=== PATIENT | male | born 1955 | race Caucasian/White ===

== ENCOUNTER 2017-12-03 18:19 | Observation (INO) | payer OTHER ==
[~2017-12-03] VITALS: Ht 182.9 cm; Wt 84.0 kg
[2017-12-03 18:27] VITALS: BP 118/81; PULSE 117; RESP 18; TEMP 97.9; O2SAT 93
[2017-12-03 18:38] VITALS: BP 118/81; PULSE 111; RESP 18; TEMP 97.9; O2SAT 94
[2017-12-03 18:41] VITALS: BP 118/81; PULSE 111; RESP 18; TEMP 97.9; O2SAT 94
[2017-12-03] MEDS ORDERED: THIAMINE INJ 100 MG in SODIUM CHLORIDE 0.9% INJ 100 ML IV ONE (18:45)
[2017-12-03] MEDS ORDERED: SODIUM CHLOR 0.9% 1000 ML INJ 1,000 ML IV ONE ×2 (18:45→19:15)
[2017-12-03 18:47] VITALS: BP_SYST 103; BP_SYST 118; BP_SYST 133; BP_DIAS 73; BP_DIAS 80; BP_DIAS 88; RESP 21; RESP 24
[2017-12-03 18:53] LABS: AUTOMATED NEUTROPHIL # 6.5 TH/MM3 (1.8-7.7); BASOPHIL # 0.1 TH/MM3 (0-0.2); BASOPHIL % 0.6 % (0.0-2.0); EOSINOPHIL % 0.2 % (0.0-4.0); HEMATOCRIT 45.4 % (39.0-51.0); HEMOGLOBIN 15.8 GM/DL (13.0-17.0); LYMPH % 21.1 % (9.0-44.0); LYMPHOCYTE # 1.9 TH/MM3 (1.0-4.8); MEAN CELL VOLUME 100.7 FL (80.0-100.0); MEAN CORPUSCULAR HEMOGLOBIN 35.1 PG (27.0-34.0); MEAN CORPUSCULAR HGB CONC 34.8 % (32.0-36.0); MONO % 5.4 % (0.0-8.0); MONOCYTE # 0.5 TH/MM3 (0-0.9); NEUT % 72.7 % (16.0-70.0); PLATELET COUNT 174 TH/MM3 (150-450); RED BLOOD COUNT 4.51 MIL/MM3 (4.50-5.90); RED CELL DISTRIBUTION WIDTH 14.8 % (11.6-17.2)
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
[2017-12-03 19:06] LABS: PROTHROMBIN TIME - PATIENT 9.7 SEC (9.8-11.6)
[2017-12-03 19:15] LABS: ALBUMIN 3.6 GM/DL (3.4-5.0); AST (GOT) 36 U/L (15-37); BICARBONATE 20.7 MEQ/L (21.0-32.0); BLOOD UREA NITROGEN 10 MG/DL (7-18); CALCIUM 8.4 MG/DL (8.5-10.1); CHLORIDE 102 MEQ/L (98-107); CREATININE 0.77 MG/DL (0.60-1.30); GLOMERULAR FILTRATION RATE 103 ML/MIN (>89); GLUCOSE,RANDOM 73 MG/DL (74-106); MAGNESIUM 1.9 MG/DL (1.5-2.5); SODIUM (NA) 144 MEQ/L (136-145)
--- NOTE | 2017-12-03 19:20 | RADRPT ---
EXAM DATE: 12/03/2017 7:13 PM EDT AGE/SEX: 62 years / Male INDICATIONS: Bruising of the left humerus of indeterminate age, patient displays full range of motio n. CLINICAL DATA: This is the patient's initial encounter. Patient reports that signs and symptoms have been present for 1 day and indicates a pain score of 1/10. MEDICAL/SURGICAL HISTORY: Non-responsive. Non-responsive. COMPARISON: No prior exams available for comparison. FINDINGS: No acute fracture or dislocation. No bony destructive changes. CONCLUSION: No acute findings Electronically signed by: Hung Fonseca MD 12/03/2017 7:19 PM EDT
--- NOTE | 2017-12-03 19:24 | RADRPT ---
EXAM DATE: 12/03/2017 7:12 PM EDT AGE/SEX: 62 years / Male INDICATIONS: Trauma, fall yesterday. CLINICAL DATA: This is the patient's initial encounter. Patient reports that signs and symptoms have been present for 1 day and indicates a pain score of 3/10. MEDICAL/SURGICAL HISTORY: None. None. RADIATION DOSE: 20.53 CTDI (mGy) COMPARISON: No prior exams available for comparison. TECHNIQUE: Contiguous axial images were obtained using helical multirow detector technique. The vol umetric data was post-processed with multiplanar reconstruction in oblique axial, sagittal, and coron al planes. Using automated exposure control and adjustment of the mA and/or kV according to patient s ize, radiation dose was kept as low as reasonably achievable to obtain optimal diagnostic quality darrian ges. FINDINGS: There is no acute fracture or spondylolisthesis. No prevertebral soft tissue swelling. Moderate degen erative disc disease is present. No significant AP canal stenosis. Bilateral foraminal stenosis at C5 -6. Moderate to advanced facet arthropathy. CONCLUSION: 1. No acute fracture. Moderate degenerative change. Electronically signed by: Hung Fonseca MD 12/03/2017 7:22 PM EDT
--- NOTE | 2017-12-03 19:25 | RADRPT ---
EXAM DATE: 12/03/2017 7:10 PM EDT AGE/SEX: 62 years / Male INDICATIONS: Trauma, fall yesterday. CLINICAL DATA: This is the patient's initial encounter. Patient reports that signs and symptoms have been present for 1 day and indicates a pain score of 3/10. MEDICAL/SURGICAL HISTORY: None. None. RADIATION DOSE: 66.34 CTDI (mGy) COMPARISON: No prior exams available for comparison. TECHNIQUE: CT of the head without contrast. Using automated exposure control and adjustment of the mA and/or kV according to patient size, radiation dose was kept as low as reasonably achievable to ob tain optimal diagnostic quality images. FINDINGS: Cerebrum: The ventricles are normal for age. No evidence of midline shift, mass lesion, hemorrhage or acute infarction. No extraaxial fluid collections are seen. Posterior Fossa: The cerebellum and brainstem are intact. The 4th ventricle is midline. The cerebe llopontine angle is unremarkable. Extracranial: The visualized portion of the orbits is intact. Skull: The calvaria is intact. No evidence of skull fracture. CONCLUSION: 1. No acute intracranial abnormalities. Electronically signed by: Hung Fonseca MD 12/03/2017 7:23 PM EDT
[2017-12-03 19:26] LABS: ALKALINE PHOSPHATASE 69 U/L (45-117); ALT (GPT) 45 U/L (12-78); TOTAL BILIRUBIN ADULT 0.8 MG/DL (0.2-1.0); TOTAL PROTEIN 7.5 GM/DL (6.4-8.2); TROPONIN I LESS THAN 0.02 NG/ML (0.02-0.05)
--- NOTE | 2017-12-03 19:26 | RADRPT ---
EXAM DATE: 12/03/2017 7:09 PM EDT AGE/SEX: 62 years / Male INDICATIONS: Syncopal episode. CLINICAL DATA: This is the patient's initial encounter. Patient reports that signs and symptoms have been present for 1 day and indicates a pain score of 0/10. MEDICAL/SURGICAL HISTORY: None. None. COMPARISON: No prior exams available for comparison. FINDINGS: A single AP view of the chest demonstrates the lungs to be symmetrically aerated without evidence of mass, infiltrate or effusion. The cardiomediastinal contours are unremarkable. Osseous structures a re intact. CONCLUSION: No acute findings. Incidental azygos fissure. Electronically signed by: Hung Fonseca MD 12/03/2017 7:25 PM EDT
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
[2017-12-03] MEDS ORDERED: SODIUM CHLORIDE 0.9% FLUSH 10 ML FLUSH IV FLUSH PRN (20:30)
[2017-12-03] MEDS ORDERED: FLUMAZENIL 0.5 MG/5 ML VIAL IV PUSH PRN (20:30)
[2017-12-03] MEDS ORDERED: LORazepam 1 MG TAB PO PRN (20:30)
[2017-12-03] MEDS ORDERED: LORazepam 2 MG TAB PO PRN (20:30)
[2017-12-03] MEDS ORDERED: LORazepam 2 MG/ML VIAL IV PUSH PRN ×4 (20:30)
[2017-12-03] MEDS ORDERED: ENOXAPARIN SODIUM 40 MG/0.4 ML SYRINGE SQ SCH (21:00)
[2017-12-03] MEDS: SODIUM CHLORIDE 0.9% FLUSH 10 ML FLUSH IV FLUSH SCH (21:10)
[2017-12-03] MEDS: CEPHALEXIN MONOHYDRATE 500 MG CAP PO SCH (21:10)
[2017-12-03 21:32] VITALS: BP 136/71; PULSE 99; RESP 17; TEMP 98.1; O2SAT 94
[2017-12-03] MEDS ORDERED: THIAMINE INJ 100 MG in SODIUM CHLORIDE 0.9% INJ 100 ML IV SCH (22:00)
[2017-12-03] MEDS ORDERED: MULTIVITAMIN INJ 10 ML, FOLIC ACID INJ 1 MG in SODIUM CHLORID 0.9% 500 ML INJ 500 ML IV SCH (22:00)
[2017-12-03 23:25] VITALS: BP 132/73; PULSE 113; RESP 17; TEMP 98.3; O2SAT 96
[2017-12-04 03:52] VITALS: BP 115/67; PULSE 86; RESP 17; TEMP 98.5; O2SAT 95
[2017-12-04] MEDS: CEPHALEXIN MONOHYDRATE 500 MG CAP PO SCH (06:40)
[2017-12-04] MEDS ORDERED: SODIUM CHLOR 0.9% 1000 ML INJ 1,000 ML IV SCH (07:15)
[2017-12-04 07:35] LABS: HEMATOCRIT 39.2 % (39.0-51.0); HEMOGLOBIN 13.5 GM/DL (13.0-17.0); MEAN CELL VOLUME 99.8 FL (80.0-100.0); MEAN CORPUSCULAR HEMOGLOBIN 34.4 PG (27.0-34.0); MEAN CORPUSCULAR HGB CONC 34.5 % (32.0-36.0); MEAN PLATELET VOLUME 7.6 FL (7.0-11.0); PLATELET COUNT 153 TH/MM3 (150-450); RED BLOOD COUNT 3.93 MIL/MM3 (4.50-5.90); RED CELL DISTRIBUTION WIDTH 14.3 % (11.6-17.2); WHITE BLOOD COUNT 6.2 TH/MM3 (4.0-11.0)
[2017-12-04] MEDS: SODIUM CHLORIDE 0.9% FLUSH 10 ML FLUSH IV FLUSH SCH (07:40)
[2017-12-04 07:41] LABS: PROTHROMBIN TIME - PATIENT 10.6 SEC (9.8-11.6)
[2017-12-04 08:14] LABS: ALBUMIN 2.9 GM/DL (3.4-5.0); ALKALINE PHOSPHATASE 54 U/L (45-117); ALT (GPT) 33 U/L (12-78); AST (GOT) 26 U/L (15-37); BICARBONATE 29.2 MEQ/L (21.0-32.0); BLOOD UREA NITROGEN 10 MG/DL (7-18); CALCIUM 8.4 MG/DL (8.5-10.1); CHLORIDE 103 MEQ/L (98-107); CREATININE 0.74 MG/DL (0.60-1.30); GLOMERULAR FILTRATION RATE 108 ML/MIN (>89); GLUCOSE,RANDOM 83 MG/DL (74-106); SODIUM (NA) 141 MEQ/L (136-145); TOTAL BILIRUBIN ADULT 1.1 MG/DL (0.2-1.0); TOTAL PROTEIN 6.2 GM/DL (6.4-8.2)
[2017-12-04 08:20] VITALS: BP_SYST 115; BP_SYST 120; BP_SYST 130; BP_DIAS 69; BP_DIAS 70; BP_DIAS 72; PULSE 79; RESP 18; TEMP 97.7; O2SAT 91
[2017-12-04] MEDS ORDERED: FOLIC ACID 1 MG TAB PO SCH (09:00)
[2017-12-04] MEDS ORDERED: CEPH500C PO (10:06)
[2017-12-04] MEDS ORDERED: MULT-65 PO (10:06)
--- NOTE | 2017-12-04 10:07 | HHI.DCPOC ---
Discharge Care Plan Diagnosis: (1) Toxic metabolic encephalopathy (2) Alcoholism (3) Cellulitis (4) High anion gap metabolic acidosis (5) Fall Goals to Promote Your Health * To prevent worsening of your condition and complications * To maintain your health at the optimal level Directions to Meet Your Goals Take your medications as prescribed Follow your dietary instruction Follow activity as directed Keep your appointments as scheduled Take your immunizations and boosters as scheduled If your symptoms worsen call your PCP, if no PCP go to Urgent Care Center or Emergency Room Smoking is Dangerous to Your Health. Avoid second hand smoke Call the 24-hour hour crisis hotline for domestic abuse at aDkota Herrera MD R2 Dec 04, 2017 10:07
[2017-12-04 11:27] VITALS: BP 129/71; PULSE 92; RESP 18; TEMP 98; O2SAT 92
--- NOTE | 2017-12-04 11:36 | HHI.FPPN ---
Subjective Remarks Pt. seen, examined and discussed with Dr. Dobson and Javier. This is a 62 yo male who is a heavy alcohol user and who had had frequent falls on the days leading up to admission. On the day of admission a friend found him awke but altered, with agitation, confusion, slurring of speech and poor balance. Has been treated at [facility] in the past. His etoh level was 400 and he ad metabolic acidosis. was started on a rally pack and was given a fluid bolus in ED. No focal neurologic deficits were noted when initially seen by Dr. Herrera. This a.m. he reports feeling better but still being a bit unsteady. Appetite is good. Objective Vitals Vital Signs Date Time Temp Pulse Resp B/P (MAP) Pulse Ox O2 Delivery O2 Flow Rate FiO2 12/04/17 08:20 97.7 79 18 115/72 (86) 91 120/69 (86) 130/70 (90) 12/04/17 03:52 98.5 86 17 115/67 (83) 95 12/03/17 23:25 98.3 113 17 132/73 (92) 96 12/03/17 21:32 98.1 99 17 136/71 (92) 94 12/03/17 21:31 12/03/17 18:47 115 21 133/88 (103) 122 24 118/80 (93) 127 24 103/73 (83) 12/03/17 18:41 97.9 111 18 118/81 (93) 94 Nasal Cannula 2.00 12/03/17 18:38 97.9 111 18 118/81 (93) 94 Nasal Cannula 2.00 12/03/17 18:32 112 18 94 Nasal Cannula 2.00 12/03/17 18:27 97.9 117 18 118/81 (93) 93 I/O 12/03/17 12/03/17 12/03/17 12/04/17 12/04/17 12/04/17 06:59 14:59 22:59 06:59 14:59 22:59 Intake Total 2101 ml 1000 ml 500 ml Output Total 550 ml Balance 2101 ml 1000 ml -50 ml Intake Oral 1000 ml 500 ml IV Total 2101 ml Output Urine Total 550 ml # Voids 2 Result Diagram: 12/04/17 0537 12/04/1737 Objective Remarks O. CONSTITUTIONAL/GEN: normally nourished, in NAD. HEAD: Black eschar on upper forehead and scalp which appears to be old, dried blood. EYES: conjunctiva normal, PERRLA, EOMI. NECK: supple LUNGS: clear A-P, respiratory effort is normal. CARDIOVASCULAR: RR without murmur or gallop. No significant edema. GI/ABD: soft without masses, without organomegaly. NEURO: No focal deficits. Gait is mildly ataxic. SKIN: Poor hygiene, erythematous rash on anterior thoras and left upper thigh, non-pruritic. HEME/LYMPH: no bruising, petechia or significant adenopathy MUSC: back is normal in appearance. Extremities are normal in appearance with the exception of the rash as noted above. PSYCH/MENTAL STATUS: Alert and oriented x 3. A/P Assessment and Plan 62-year-old with alcohol abuse and no other major past medical history presenting with: Discharge Planning Home today, follow-up with his primary care doctor re his rash. Advised to discontinue alcohol. Attending Attestation Patient seen and examined. Case reviewed and discussed with the resident team. Agree with plan of care as discussed with me. Problem List: (1) Toxic metabolic encephalopathy ICD Codes: G92 - Toxic encephalopathy Status: Resolved Plan: Episode of altered mental status and ataxia almost certainly secondary to alcohol intoxication Neurologic exam within normal limits EtOH level elevated Metabolic acidosis due to alcohol Reported chest pain unlikely to be cardiac; initial troponin negative, CP not preceding admission - IV fluids - Thiamine, folate, multivitamin - Prevent withdrawal as below - Neuro checks (2) Fall ICD Codes: W19.XXXA - Unspecified fall, initial encounter Status: Resolved Plan: Mechanical fall likely due to alcohol intoxication CT head negative for acute pathology - Monitor clinically (3) Cellulitis ICD Codes: L03.90 - Cellulitis, unspecified Status: Acute Plan: Cellulitic changes of chest and L upper thigh on exam No fever or leukocytosis - Cephalexin 500 mg PO TID x7 days (4) Orthostatic hypotension ICD Codes: I95.1 - Orthostatic hypotension Status: Resolved Plan: Likely secondary to malnutrition from alcohol abuse - Regular diet if passes swallow eval - IV fluids (5) High anion gap metabolic acidosis ICD Codes: E87.2 - Acidosis Status: Acute Plan: Secondary to alcohol use - See plan above (6) Alcoholism ICD Codes: F10.20 - Alcohol dependence, uncomplicated Status: Chronic Plan: Chronic, intermittently acknowledging (in denial phase) - Rally pack as above - CIWA protocol to prevent withdrawal - CM to assess social situation, provide resources locally (patient had been to [facility] for detox previously) (7) FEN/PPX Status: Resolved Plan: Fluids: NS Elecs: Monitor, replete PRN Nutrition: Diet regular basic (if passes bedside swallow eval) DVT: Lovenox Code status: DNR Dispo: Place in observation; likely can be discharged tomorrow once intoxication wears off Problem Qualifiers (1) Fall: Qualified Codes: W19.XXXA - Unspecified fall, initial encounter (2) Cellulitis: Qualified Codes: L03.90 - Cellulitis, unspecified Laura Salas MD Dec 04, 2017 11:36
--- NOTE | 2017-12-04 14:34 | EKG ---
Date Performed: 12/03/2017 Time Performed: 18:35:19 PTAGE: 62 years EKG: SINUS TACHYCARDIA ABNORMAL RHYTHM ECG NO PREVIOUS TRACING DOCTOR: Nikko Cabrera Interpretating Date/Time 12/04/2017 14:31:17
[2017-12-07] MEDS ORDERED: THIAMINE HCL 100 MG TAB PO SCH (09:00)
== END 2017-12-04 13:18 | disposition home or self-care (01) ==
LOC: NEPC 18:19 → NEDA 19:57 → NEPFCDU 21:22
PROVIDERS: ADMIT Family Medicine; ATTEND Family Medicine
DX: F10.229 Alcohol dependence with intoxication, unspecified (principal); G92 Toxic encephalopathy; E87.2 Acidosis; I95.1 Orthostatic hypotension; L03.313 Cellulitis of chest wall; L03.116 Cellulitis of left lower limb; R62.7 Adult failure to thrive; R00.0 Tachycardia, unspecified; R94.31 Abnormal electrocardiogram [ECG] [EKG]; E46 Unspecified protein-calorie malnutrition; R06.02 Shortness of breath; R10.9 Unspecified abdominal pain; J45.909 Unspecified asthma, uncomplicated; Y90.8 Blood alcohol level of 240 mg/100 ml or more; Z87.891 Personal history of nicotine dependence; W18.30XA Fall on same level, unspecified, initial encounter
CPT/HCPCS: 70450; 71045; 72125; 73060; 80053; 80307; 82140; 82550; 82552; 82948; 83735; 84443; 84484; 85025; 85027; 85610; 85730; 87040; 87205; 93005; 96361; 96365; 96367; 96372; 99285; G0378; J1650; J3411; J7030; J7040